=== PATIENT | male | born 1980 | race Caucasian/White ===

== ENCOUNTER 2017-04-14 13:17 | Emergency (ER) | payer MEDICAID ==
[~2017-04-14] VITALS: Ht 172.7 cm; Wt 97.0 kg
[2017-04-14 13:44] VITALS: Ht 172.7 cm; Wt 97.0 kg
[2017-04-14] MEDS ORDERED: IBUPROFEN 600 MG TAB PO ONE (15:30)
--- NOTE | 2017-04-14 16:57 | RADRPT ---
PROCEDURE: XR Lumbar Spine. CLINICAL INDICATION: Low back pain. TECHNIQUE: Three views of the lumbar spine are available for review COMPARISON: None available FINDINGS: There is no acute fracture or static subluxation. The vertebral body heights and interver tebral disk heights are well maintained. The normal lumbar lordosis is preserved and the alignment i s normal. The posterior elements are normal in appearance. IMPRESSION: 1. Unremarkable lumbar spine series. RPTAT: HLBP .Jeff Mancini MD, MD Date Time Electronically viewed and signed by .Jeff Mancini MD, on 04/14/2017 16:56 .P/
--- NOTE | 2017-04-14 17:02 | RADRPT ---
PROCEDURE: XR Knee. CLINICAL INDICATION: Right knee injury with pain. TECHNIQUE: Three views of the right knee are available for review. COMPARISON: None available FINDINGS: There are punctate osseous fragments seen above the medial tibial spine within the joint space on the AP and tunnel views. The alignment is otherwise normal and there is no additional fract ure dislocation. There is a small to moderate joint effusion. The osseous mineralization is within normal limits. There is tricompartmental osteoarthritis, which is moderate in the lateral femorotib ial compartment with joint space loss and marginal osteophyte formation. IMPRESSION: 1. Punctate osseous fragments superior to the medial tibial spine, which may reflect a avulsion fra gments versus intra-articular loose bodies from an alternate source. MRI can be performed for furthe r evaluation. 2. Small to moderate joint effusion. 3. 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 RPTAT: HLBP .Jeff Mancini MD, MD Date Time Electronically viewed and signed by .Jeff Mancini MD, on 04/14/2017 17:01 .P/
--- NOTE | 2017-04-14 17:04 | RADRPT ---
PROCEDURE: XR Tibia and Fibula. CLINICAL INDICATION: Knee injury with right lower extremity pain. TECHNIQUE: AP and lateral views of the right tibia and fibula are available for review. COMPARISON: None available. FINDINGS: There is deformity of the distal fibular diaphysis, consistent with the sequela of prior trauma. The ankle is otherwise unremarkable. The alignment is otherwise normal with no acute fractur e dislocation identified. The soft tissues are unremarkable. The osseous mineralization is within n ormal limits. IMPRESSION: 1. Negative for acute fracture or dislocation. 2. Deformity of the distal fibular diaphysis, consistent with the sequela of prior trauma. If there is clinical concern for acute ankle injury, dedicated plain film imaging is recommended. RPTAT: HLBP .Jeff Mancini MD, Date Time Electronically viewed and signed by .Jeff Mancini MD, on 04/14/2017 17:04 .P/
--- NOTE | 2017-04-14 18:10 | RADRPT ---
PROCEDURE: XR Right Ankle. CLINICAL INDICATION: Trauma due to a fall. Right ankle pain. TECHNIQUE: 3 views. Frontal, lateral, and oblique. COMPARISON: None. FINDINGS: There is no acute fracture or dislocation. There is an old healed fracture of the distal shaft of th e fibula with mild deformity. The soft tissues are normal. The articular surfaces are intact. There are small osteophytes arising from the anterior articular s urface of the distal tibia. There is no lytic or blastic lesion. There is no radiopaque foreign body. IMPRESSION: 1. Old healed fracture of the distal shaft of the fibula. 2. Small osteophytes arising from the anterior articular surface of the distal tibia. 3. Otherwise unremarkable images of the right ankle. RPTAT: QQ .Claudio Stoner MD, Date Time Electronically viewed and signed by .Claudio Stoner MD, MD on 04/14/2017 18:10 .R/
[2017-04-14] MEDS ORDERED: IBUP-1542 PO (18:38)
--- NOTE | 2017-04-14 18:54 | ERD ---
ER Documentation Chief Complaint Date/Time DATE: 04/14/17 TIME: 18:47 Chief Complaint RIGHT KNEE ROSE MARY/INJURY HPI Patient is a 36-year-old male presents to the ER with right knee pain, right lower leg pain and right ankle pain after something heavy fell on him at work. Patient states that he fell back and hurt his lower back as well. Patient denies urinary and bowel incontinence. Patient denies any saddle like anesthesia. He denies any IV drug use. Pain is throbbing in quality and nonradiating. He denies any numbness or tingling of his leg or foot. She has not had any fevers or chills. ROS 12 point review of systems was done, all negative except per HPI. Medications Home Meds Active Scripts Ibuprofen* (Motrin*) 600 Mg Tab, 600 MG PO Q6, #30 TAB Prov:ANDRIA COUCH 04/14/17 PMhx/Soc Medical and Surgical Hx: pt denies Medical Hx, pt denies Surgical Hx Hx Alcohol Use: No Hx Substance Use: No Smoking Status: Never smoker Physical Exam Vitals Vital Signs Date Time Temp Pulse Resp B/P Pulse Ox O2 Delivery O2 Flow Rate FiO2 04/14/17 13:44 98.2 66 19 137/83 98 Physical Exam GENERAL: The patient is well developed and appropriate for usual state of health , in no apparent distress. HEENT: Atraumatic CHEST: Clear to auscultation bilaterally. There are no rales, wheezes or rhonchi. HEART: Regular rate and rhythm. No murmurs, clicks, rubs or gallops. BACK: No midline or flank tenderness. No lumbar spine tenderness, no crepitus no step-offs. EXTREMITIES: Right knee: No obvious asymmetry or deformity when compared to the left knee. Patient does not have any tenderness to palpation to the patella or the joint. There is no erythema, edema or warmth to the touch. No crepitus. Patient has full and nonpainful range of motion of the knee. Negative anterior drawer negative posterior drawer negative Lux test. Patient is tender to palpation along the tibia. He is tender to palpation to the lateral and medial malleolus of the right ankle. Negative tarsal twist test. +2 pulses. Intact to L4 L5-S1. NEURO: Alert and oriented. SKIN: The skin is warm and dry. Results 24 hrs Current Medications Medications (Trade) Dose Ordered Sig/Cookie Route PRN Reason Start Time Stop Time Status Last Admin Dose Admin Ibuprofen (Motrin) 600 mg ONCE ONCE PO 04/14/17 15:30 04/14/17 15:31 DC 04/14/17 15:39 Procedures/MDM This is a 36-year-old male presents to the ER patient with right knee pain, leg pain and ankle pain. Patient has full range of motion of his knee, ankle and can ablate in the ER without any pain. Patient will be put in a knee immobilizer and given crutches, he was told not to bear any weight. Patient is to follow-up with his orthopedic doctor as soon as possible as he may have avulsion fractures. Patient is in with ibuprofen. He is to follow-up with his primary care doctor within 1-2 days or return to ER sooner if symptoms worsen. My medical decision making sure with the patient understands and agrees with plan. Departure Diagnosis: Primary Impression: Knee injury Condition: Stable Patient Instructions: Reducing Knee Pain and Swelling Additional Instructions: Llame al doctor EMILY y olga abdelrahman RASHARD PARA DENTRO DE 1-2 MARTINEZ.Dgale a la secretaria que nosotros le instruimos hacer esta rashard.Avise o llame si yeboah condicin se empeora antes de la rashard. Regresa aqui si peor o no mejor. ANDRIA COUCH Apr 14, 2017 18:54
[2017-04-14 18:58] VITALS: BP 131/70; PULSE 71; RESP 18
== END 2017-04-14 19:24 | disposition home or self-care (01) ==
LOC: FTE 13:17
DX: S89.91XA Unspecified injury of right lower leg, initial encounter (principal); W20.8XXA Other cause of strike by thrown, projected or falling object, initial encounter; Y92.89 Other specified places as the place of occurrence of the external cause
CPT/HCPCS: 29105; 72100; 73562; 73590; 73610; Z7502; Z7610